=== PATIENT | male | born 1950 | race Hispanic/Latino ===

== ENCOUNTER 2022-06-27 20:24 | Inpatient (IN) | payer OTHER ==
[~2022-06-27] VITALS: Ht 175.3 cm; Wt 85.3 kg
[~2022-06-27 20:24] MED LIST: COZAAR50 MG
[2022-06-27] MEDS ORDERED: LOSARTAN POTAS100 MG PO (21:38)
[2022-06-27] MEDS ORDERED: COZAAR50 MG PO (21:39)
== END 2022-07-24 19:12 | DRG 73 ==
LOC: ER 20:24 → ICU 06-28 19:50 → SEC-K 06-28 19:50 → SURH 06-28 19:50 → ICU 07-01 15:59 → MEDI 07-15 20:03
PROVIDERS: Anesthesiology Pain Medicine; ADMIT Internal Medicine; ATTEND Internal Medicine
PROC: B24BZZZ Ultrasonography of Heart with Aorta (ICD-10-PCS; 2022-06-28)
PROC: B345ZZZ Ultrasonography of Bilateral Common Carotid Arteries (ICD-10-PCS; 2022-06-28)
PROC: B030YZZ Magnetic Resonance Imaging (MRI) of Brain using Other Contrast (ICD-10-PCS; 2022-06-29)
PROC: BW38ZZZ Magnetic Resonance Imaging (MRI) of Head (ICD-10-PCS; 2022-06-29)
PROC: 02HV33Z Insertion of Infusion Device into Superior Vena Cava, Percutaneous Approach (ICD-10-PCS; 2022-07-01)
PROC: 4A12X4Z Monitoring of Cardiac Electrical Activity, External Approach (ICD-10-PCS; 2022-07-01)
PROC: 009U3ZX Drainage of Spinal Canal, Percutaneous Approach, Diagnostic (ICD-10-PCS; principal; 2022-07-01 11:00)
PROC: BW38YZZ Magnetic Resonance Imaging (MRI) of Head using Other Contrast (ICD-10-PCS; 2022-07-06)
PROC: B030ZZZ Magnetic Resonance Imaging (MRI) of Brain (ICD-10-PCS; 2022-07-16)
DX: B02.0 Zoster encephalitis (principal); I63.512 Cerebral infarction due to unspecified occlusion or stenosis of left middle cerebral artery; G40.89 Other seizures; N39.0 Urinary tract infection, site not specified; I69.351 Hemiplegia and hemiparesis following cerebral infarction affecting right dominant side; E86.0 Dehydration; F80.2 Mixed receptive-expressive language disorder; R41.82 Altered mental status, unspecified; I10 Essential (primary) hypertension; I48.91 Unspecified atrial fibrillation; B96.5 Pseudomonas (aeruginosa) (mallei) (pseudomallei) as the cause of diseases classified elsewhere; E78.5 Hyperlipidemia, unspecified; Z20.822 Contact with and (suspected) exposure to COVID-19
CPT/HCPCS: 70545; 70551; 70552; 70553